=== PATIENT | male | born 1990 | race Caucasian/White ===

== ENCOUNTER 2017-08-23 15:38 | Emergency (ER) | payer SELFPAY ==
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
[2017-08-23 17:53] VITALS: BP 116/78
== END 2017-08-23 17:49 | disposition home or self-care (01) ==
LOC: ED 15:38
DX: S01.81XA Laceration without foreign body of other part of head, initial encounter (principal); V89.2XXA Person injured in unspecified motor-vehicle accident, traffic, initial encounter; Y93.9 Activity, unspecified; Y92.9 Unspecified place or not applicable; Y99.9 Unspecified external cause status
CPT/HCPCS: 12001; 99283